=== PATIENT | male | born 1970 | race Hispanic/Latino ===

== ENCOUNTER 2022-09-21 11:36 | Day surgery (SDC) | payer BC, OTHER ==
[~2022-09-21] VITALS: Ht 185.4 cm; Wt 122.0 kg
[2022-09-21] VITALS (18 sets, daily range): BP systolic 111–149; BP diastolic 72–89
[2022-09-21] MEDS ORDERED: PROPOFOL 10 MG/ML 20ML VIAL IV ONE (12:59)
[2022-09-21] MEDS ORDERED: ETHYL ALCOHOL IJ SCH (13:00)
[2022-09-21] MEDS ORDERED: LIDOCAINE PF 100MG/5ML (2%) SYRINGE 5ML ONE (13:00)
[2022-09-21] MEDS ORDERED: BUPIVACAINE/EPI/PF 0.25% 30ML VIAL IJ SCH (13:00)
[2022-09-21] MEDS ORDERED: HYDROMORPHONE 1 MG INJ ONE ×2 (13:52→14:33)
[2022-09-21] MEDS ORDERED: FENTANYL CITRATE PF 50 MCG/1 ML 2ML VIAL ONE (14:04)
== END 2022-09-21 14:00 | disposition short-term general hospital (02) ==
LOC: RAH 11:36
PROVIDERS: ATTEND Internal Medicine
DX: K90.0 Celiac disease (principal); Z20.822 Contact with and (suspected) exposure to COVID-19; K31.89 Other diseases of stomach and duodenum; K86.89 Other specified diseases of pancreas; I10 Essential (primary) hypertension; E11.65 Type 2 diabetes mellitus with hyperglycemia; Z79.899 Other long term (current) drug therapy; Z90.49 Acquired absence of other specified parts of digestive tract; Z98.890 Other specified postprocedural states; Z86.16 Personal history of COVID-19; Z87.891 Personal history of nicotine dependence; Z82.49 Family history of ischemic heart disease and other diseases of the circulatory system; Z79.01 Long term (current) use of anticoagulants; Z79.82 Long term (current) use of aspirin; Z79.4 Long term (current) use of insulin
CPT/HCPCS: 43253; 82948 ×2; J3010; J1170 ×2; J2001; J2704; J3490; A4620; A4649; A4215; A4223; A4222; A4216; J7030; A4606